=== PATIENT | female | born 1950 | race Caucasian/White ===

== ENCOUNTER → 2021-02-05 14:40 | Outpatient (CLI) | payer MEDICARE, SELFPAY ==
--- NOTE | ~2021-02-05 | XR_ITS ---
XR chest 2V 02/05/2021 15:07 Indication: Shortness of breath Procedure: 2 view chest Comparison: 05/04/2018 Findings: Heart size normal. No focal air space disease, pulmonary edema, pleural effusion or suspect ed pneumothorax. Calcified granuloma left lower lung zone. Multiple mild wedge compression deformitie s of the thoracic spine with accentuated kyphosis. Impression: 1: No acute cardiopulmonary disease. Reviewed, dictated and finalized at location B. Impression: 1: No acute cardiopulmonary disease.
== END ==
PROVIDERS: PCP Internal Medicine; Visit Provider Internal Medicine
DX: R06.02 Shortness of breath (principal)
CPT/HCPCS: 71046

== ENCOUNTER → 2021-03-31 17:46 | Outpatient (CLI) | payer MEDICARE, SELFPAY ==
--- NOTE | ~2021-03-31 | MM_ITS ---
EXAMINATION: MM screening [facility] BI w cristian HISTORY: Screening mammogram TECHNIQUE: Craniocaudal and mediolateral oblique 3-D tomosynthesis images were obtained and synthetic 2-D images were generated. CAD analysis was submitted and interpreted. COMPARISON: 11/26/2018, 12/13/2016, 11/22/2016, 11/20/2015 BREAST PARENCHYMAL COMPOSITION: The breasts are heterogeneously dense, which may obscure small masses . FINDINGS: There is no evidence of suspicious mass, calcification, or architectural distortion to sugg est malignancy in either breast. There has been no suspicious interval change. IMPRESSION: 1. No mammographic evidence of malignancy. 2. Recommend routine screening mammography in one year. BI-RADS Category 1: Negative Reviewed, dictated and finalized at location A.
--- NOTE | ~2021-03-31 | DEXA_ITS ---
Bone Density Report Name: Misty Oakley Age: 70 Sex: Female Ethnicity: White Date of : 1950 Indication: postmenopausal osteoporosis; height loss; prior fracture; Referring Provider: FAYE MARIE Study: Bone densitometry was performed. Exam Date: March 31, 2021 Accession number: [id number] Bone Density: Region BMD T-score Z-score Classification AP Spine (L1-L4) 0.780 -2.4 -0.2 Osteopenia Femoral Neck (Left) 0.757 -0.8 1.1 Normal Total Hip (Left) 0.836 -0.9 0.8 Normal Femoral Neck (Right) 0.717 -1.2 0.7 Osteopenia Total Hip (Right) 0.848 -0.8 0.9 Normal Total Hip Mean 0.842 -0.9 0.9 Normal World Health Organization criteria for BMD impression classify patients as: Normal (T-score at or above -1.0), Osteopenia (T-score between -1.0 and -2.5), or Osteoporosis (T-score at or below -2.5). 10-year Fracture Risk: FRAX not reported because: Prior hip or vertebral fracture Previous Exams: Region Exam Age BMD T-score BMD Change BMD Change Date g/cm2 vs Baseline vs Previous AP Spine(L1-L4) 03/31/2021 70 0.780 -2.4 0.101* 0.012 11/26/2018 68 0.768 -2.5 0.089* -0.004 11/22/2016 66 0.771 -2.5 0.093* 0.016 04/09/2014 63 0.756 -2.6 0.077* 0.018 10/18/2011 61 0.738 -2.8 0.059* 0.012 10/07/2009 59 0.726 -2.9 0.047* 0.041* 12/14/2007 57 0.685 -3.3 0.007 0.007 11/04/2005 55 0.679 -3.3 Total Hip(Left) 03/31/2021 70 0.836 -0.9 -0.016 -0.001 11/26/2018 68 0.836 -0.9 -0.015 0.005 11/22/2016 66 0.832 -0.9 -0.020 0.050* 04/09/2014 63 0.781 -1.3 -0.070* -0.055* 10/18/2011 61 0.836 -0.9 -0.015 0.043* 10/07/2009 59 0.793 -1.2 -0.058* 0.003 12/14/2007 57 0.790 -1.2 -0.061* -0.061* 11/04/2005 55 0.851 -0.7 Total Hip(Right) 03/31/2021 70 0.848 -0.8 0.002 -0.034* 11/26/2018 68 0.882 -0.5 0.037* -0.002 11/22/2016 66 0.885 -0.5 0.039* 0.020 04/09/2014 63 0.865 -0.6 0.019 0.055* 10/18/2011 61 0.810 -1.1 -0.035* 0.025 10/07/2009 59 0.785 -1.3 -0.060* 0.029* 12/14/2007 57 0.756 -1.5 -0.089* -0.089* 11/04/2005 55 0.846 -0.8 *Denotes significance at 95% confidence level, LSC for AP Spine = 0
== END ==
PROVIDERS: Visit Provider Obstetrics & Gynecology Gynecology
DX: Z12.31 Encounter for screening mammogram for malignant neoplasm of breast (principal); Z78.0 Asymptomatic menopausal state; M85.88 Other specified disorders of bone density and structure, other site; M85.851 Other specified disorders of bone density and structure, right thigh
CPT/HCPCS: 77063; 77067; 77080

== ENCOUNTER → 2021-04-27 14:50 | Outpatient (CLI) | payer MEDICARE, SELFPAY ==
--- NOTE | ~2021-04-27 | MR_ITS ---
EXAMINATION: MR knee RT wo con DATE: 04/27/2021 15:31 INDICATION: Severe pain at the lateral compartment of the right knee TECHNIQUE: Magnetic resonance imaging (MRI) of the right knee was performed without intravenous contr ast. Sequences included coronal PD-weighted FSE, coronal PD-weighted FS FSE, sagittal T2-weighted FS E, sagittal PD-weighted FS FSE and axial PD weighted fat saturated FSE. COMPARISON: None. FINDINGS: Medial compartment: Complex tear at the posterior horn of the medial meniscus with longitudinal horizontal tear plane at the medial meniscal body. Mild partial-thickness cartilage loss with minimal chondral surface irregul arity and without degenerative subchondral changes at the anterior weightbearing medial femoral condy le and anterior aspect of the medial tibial plateau. Lateral compartment: Increased signal along the inner third of the body of the lateral meniscus consistent with a small te ar of indeterminate morphology. Mild partial-thickness cartilage loss with smooth chondral surface al gagan the posterior weightbearing lateral femoral condyle. Patellofemoral compartment: Partial-thickness cartilage loss at the lateral patellar facet and patellar apical ridge which approa ches full-thickness with a few small foci of subarticular edema. Additional chondral ulceration with minimal underlying cortical irregularity and tiny focus of subarticular edema at the inferolateral as pect of the medial trochlea. Ligaments and tendons: Anterior and posterior cruciate ligaments are normal. Moderate thickening and mild increased signal o f the proximal medial collateral ligament without surrounding edema consistent with scarring related to chronic sprain. The fibular collateral ligament complex is normal. The extensor mechanism is kalen l. The visualized medial and lateral hamstring tendons as well as the iliotibial band are normal. Fluid: Small left knee joint effusion at the suprapatellar pouch. No loose osteochondral bodies identified. Osseous/other: Normal marrow signal. No fracture or pathologic marrow replacing process. Mild edema in the superfici al suprapatellar fat pad which can be seen with fat pad impingement syndrome. There is focal synoviti s at the anterolateral margin of the medial tibial plateau. Subcutaneous edema anterior to the patell ar tendon and anterior tibial tuberosity without discrete bursal fluid collection. IMPRESSION: 1. Medial and lateral meniscal tears, the former more extensive and complex, the latter involving a s mall region along the inner free edge of the lateral meniscal body and of indeterminate morphology. 2. 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 Line 3. Scarring the proximal medial collateral ligament consistent with chron ic sprain. 3. Edema at the superficial suprapatellar fat pad consistent with fat pad impingement syndrome. Reviewed, dictated and finalized at location A. IMPRESSION: 1. Medial and lateral meniscal tears, the former more extensive and complex, th e latter involving a small region along the inner free edge of the lateral meni scal body and of indeterminate morphology. 2. Patellofemoral predominant tricompartmental osteoarthritis with high-grade p atellar and medial trochlear chondromalacia. Line 3. Scarring the proximal medi al collateral ligament consistent with chronic sprain. 3. Edema at the superficial suprapatellar fat pad consistent with fat pad impin gement syndrome.
== END ==
PROVIDERS: PCP Internal Medicine; Visit Provider Orthopaedic Surgery
DX: S83.231A Complex tear of medial meniscus, current injury, right knee, initial encounter (principal); S83.271A Complex tear of lateral meniscus, current injury, right knee, initial encounter; M17.11 Unilateral primary osteoarthritis, right knee; M79.89 Other specified soft tissue disorders
CPT/HCPCS: 73721

== ENCOUNTER → 2023-04-03 13:11 | Outpatient (CLI) | payer MEDICARE, SELFPAY ==
--- NOTE | ~2023-04-03 | MM_ITS ---
EXAMINATION: MM screening [facility] BI w cristian HISTORY: Screening mammogram TECHNIQUE: Craniocaudal and mediolateral oblique 3-D tomosynthesis images were obtained and synthetic 2-D images were generated. CAD analysis was submitted and interpreted. COMPARISON: 03/31/2021, 11/26/2018 bilateral screening mammogram examinations BREAST PARENCHYMAL COMPOSITION: The breasts are heterogeneously dense, which may obscure small masses . FINDINGS: A pacemaker device partially obscures the left axillary tail and axilla. There is no eviden ce of suspicious mass, calcification, or architectural distortion to suggest malignancy in either roland ast. There has been no suspicious interval change. IMPRESSION: 1. No mammographic evidence of malignancy. 2. Recommend routine screening mammography in one year. BI-RADS Category 1: Negative Reviewed, dictated and finalized at location A.
--- NOTE | ~2023-04-03 | DEXA_ITS ---
Bone Density Report Name: LEON NOE Age: 72 Sex: Female Ethnicity: White Date of : 1950 Indication: osteopenia; height loss; prior fracture; postmenopausal Referring Provider: FAYE MARIE Study: Bone densitometry was performed. Exam Date: April 03, 2023 Accession number: [id number] Bone Density: Region BMD T-score Z-score Classification AP Spine (L1-L4) 0.773 -2.5 -0.1 Osteoporosis Femoral Neck (Left) 0.794 -0.5 1.6 Normal Total Hip (Left) 0.784 -1.3 0.5 Osteopenia Femoral Neck (Right) 0.767 -0.7 1.3 Normal Total Hip (Right) 0.838 -0.8 0.9 Normal Total Hip Mean 0.811 -1.1 0.7 Osteopenia World Health Organization criteria for BMD impression classify patients as: Normal (T-score at or above -1.0), Osteopenia (T-score between -1.0 and -2.5), or Osteoporosis (T-score at or below -2.5). 10-year Fracture Risk: FRAX not reported because: Some T-score for Spine Total or Hip Total or Femoral Neck at or below -2.5 Prior hip or vertebral fracture Previous Exams: Region Exam Age BMD T-score BMD Change BMD Change Date g/cm2 vs Baseline vs Previous AP Spine(L1-L4) 04/03/2023 72 0.773 -2.5 0.094* -0.007 03/31/2021 70 0.780 -2.4 0.101* 0.012 11/26/2018 68 0.768 -2.5 0.089* -0.004 11/22/2016 66 0.771 -2.5 0.093* 0.016 04/09/2014 63 0.756 -2.6 0.077* 0.018 10/18/2011 61 0.738 -2.8 0.059* 0.012 10/07/2009 59 0.726 -2.9 0.047* 0.041* 12/14/2007 57 0.685 -3.3 0.007 0.007 11/04/2005 55 0.679 -3.3 Total Hip(Left) 04/03/2023 72 0.784 -1.3 -0.067* -0.051* 03/31/2021 70 0.836 -0.9 -0.016 -0.001 11/26/2018 68 0.836 -0.9 -0.015 0.005 11/22/2016 66 0.832 -0.9 -0.020 0.050* 04/09/2014 63 0.781 -1.3 -0.070* -0.055* 10/18/2011 61 0.836 -0.9 -0.015 0.043* 10/07/2009 59 0.793 -1.2 -0.058* 0.003 12/14/2007 57 0.790 -1.2 -0.061* -0.061* 11/04/2005 55 0.851 -0.7 Total Hip(Right) 04/03/2023 72 0.838 -0.8 -0.007 -0.010 03/31/2021 70 0.848 -0.8 0.002 -0.034* 11/26/2018 68 0.882 -0.5 0.037* -0.002 11/22/2016 66 0.885 -0.5 0.039* 0.020 04/09/2014 63 0.865 -0.6 0.019 0.055* 10/18/2011 61 0.810 -1.1 -0.035* 0.025 10/07/2009 59 0.785 -1.3 -0.060* 0
== END ==
PROVIDERS: PCP Obstetrics & Gynecology Gynecology; Visit Provider Obstetrics & Gynecology Gynecology
DX: Z12.31 Encounter for screening mammogram for malignant neoplasm of breast (principal); Z78.0 Asymptomatic menopausal state; M81.0 Age-related osteoporosis without current pathological fracture; M85.852 Other specified disorders of bone density and structure, left thigh
CPT/HCPCS: 77063; 77067; 77080

== ENCOUNTER 2024-07-23 13:53 | Outpatient (CLI) | payer MEDICARE, SELFPAY ==
--- NOTE | ~2024-07-23 | MM_ITS ---
EXAMINATION: MM screening [facility] BI w cristian HISTORY: Screening TECHNIQUE: Craniocaudal and mediolateral oblique 3-D tomosynthesis images were obtained and synthetic 2-D images were generated. CAD analysis was submitted and interpreted. COMPARISON: Comparison to multiple prior studies sequentially, with oldest reviewed study dated 03/2016. BREAST PARENCHYMAL COMPOSITION: Not dense: There are scattered areas of fibroglandular density. FINDINGS: There is no evidence of suspicious mass, calcification, or architectural distortion to sugg est malignancy in either breast. There has been no suspicious interval change. IMPRESSION: 1. No mammographic evidence of malignancy. 2. Recommend routine screening mammography in one year. BI-RADS Category 1: Negative Reviewed, dictated and finalized at location B. N CLEANER
== END 2024-07-23 13:54 | disposition home or self-care (01) ==
LOC: MICIMG 13:55
PROVIDERS: PCP Family Medicine; Visit Provider Obstetrics & Gynecology Gynecology
DX: Z12.31 Encounter for screening mammogram for malignant neoplasm of breast (principal)
CPT/HCPCS: 77063; 77067

== ENCOUNTER 2025-04-04 14:50 | Outpatient (CLI) | payer MEDICARE, SELFPAY ==
--- NOTE | ~2025-04-04 | DEXA_ITS ---
Bone Density Report Name: LEON NOE Age: 74 Sex: Female Ethnicity: White Date of : 1950 Indication: postmenopausal osteoporosis; height loss; Referring Provider: FAYE MARIE Study: Bone densitometry was performed. Exam Date: April 04, 2025 Accession number: [id number] Bone Density: Region BMD T-score Z-score Classification AP Spine(L1-L4) 0.761 -2.6 -0.1 Osteoporosis Femoral Neck (Left) 0.739 -1.0 1.2 Normal Total Hip (Left) 0.770 -1.4 0.5 Osteopenia Femoral Neck (Right) 0.702 -1.3 0.8 Osteopenia Total Hip (Right) 0.803 -1.1 0.7 Osteopenia Total Hip Mean 0.786 -1.3 0.6 Osteopenia World Health Organization criteria for BMD impression classify patients as: Normal (T-score at or above -1.0), Osteopenia (T-score between -1.0 and -2.5), or Osteoporosis (T-score at or below -2.5). 10-year Fracture Risk: FRAX not reported because: Some T-score for Spine Total or Hip Total or Femoral Neck at or below -2.5 Previous Exams: -- Region Exam Age BMD T-score BMD Change BMD Change Date g/cm2 vs Baseline vs Previous -- AP Spine (L1-L4) 04/04/2025 74 0.761 -2.6 12.1%* -1.5% 04/03/2023 72 0.773 -2.5 13.9%* -0.9% 03/31/2021 70 0.780 -2.4 14.9%* 1.6% 11/26/2018 68 0.768 -2.5 13.1%* -0.5% 11/22/2016 66 0.771 -2.5 13.6%* 2.1% 04/09/2014 63 0.756 -2.6 11.3%* 2.4% 10/18/2011 61 0.738 -2.8 8.7%* 1.7% 10/07/2009 59 0.726 -2.9 7.0%* 5.9%* 12/14/2007 57 0.685 -3.3 1.0% 1.0% 11/04/2005 55 0.679 -3.3 Total Hip(Left) 04/04/2025 74 0.770 -1.4 -9.6%* -1.8% 04/03/2023 72 0.784 -1.3 -7.9%* -6.2%* 03/31/2021 70 0.836 -0.9 -1.8% -0.1% 11/26/2018 68 0.836 -0.9 -1.7% 0.6% 11/22/2016 66 0.832 -0.9 -2.3% 6.5%* 04/09/2014 63 0.781 -1.3 -8.2%* -6.6%* 10/18/2011 61 0.836 -0.9 -1.8% 5.4%* 10/07/2009 59 0.793 -1.2 -6.8%* 0.4% 12/14/2007 57 0.790 -1.2 -7.2%* -7.2%* 11/04/2005 55 0.851 -0.7 Total Hip(Right) 04/04/2025 74 0.803 -1.1 -5.1%* -4.2%* 04/03/2023 72 0.838 -0.8 -0.9% -1.1% 03/31/2021 70 0.848 -0.8 0.3% -3.9%* 11/26/2018 68 0.882 -0.5 4.4%* -0.3% 11/22/2016 66 0.885 -0.5 4.6%* 2.3% 04/09/2014 63 0.865 -0.6 2.3% 6.7%* 10/18/2011 61 0.810 -1.1 -4.2%* 3.2% 10/07/2009 59 0.785 -1.3 -7.1%* 3.8%* 12/14/2007 57 0.756 -1.5 -10.5%* -10.5%* 11/04/2005 55 0.846 -0.8 -- *Denotes significance at 95% confidence level, LSC for AP Spine = 0.022 g/cm2, LSC for Total Hip = 0.027 g/cm2 Clinical Information Provided by Patient: Has used the following medications: Forteo (i.e. parathyroid hormone), Fosamax (i.e. alendronate), HRT (i.e. estrogen/hormone therapy), Calcium Patient maximum height was 62 Menopause Age: 53 No regular weight bearing exercise Does not regularly consume dairy products Drinks caffeinated beverages Onset of menses at age 14 Number of children 2 Impression: The patient has osteoporosis, based on the Total Spine T-score. The BMD for the Total Hip(Right) decreased, changing by -4.2% since the last DXA exam. Discussion: INCREASED RISK OF FRACTURE. BONE DENSITY IS UNDESIRABLY LOW AT ONE OR MORE SKELETAL SITES, CONSISTENT WITH POSTMENOPAUSAL OSTEOPOROSIS. This patient's lowest T-score meets the World Health Organization's (WHO) criteria for osteoporosis at one or more sites (T-score -2.5 or below). In untreated patients, the risk of osteoporotic fracture increases approximately two-fold for each 1.0 SD decrease in T-score. Low bone density is not the only risk factor for fracture; also consider factors such as patient's age, frailty or poor health, risk of falling, risk of injury, previous osteoporotic fracture, family history of osteoporosis, cigarette smoking, low body weight, etc. Not everyone with low bone mineral density has osteoporosis; osteomalacia and other metabolic bone disorders should also be considered. Patients who have osteoporosis should be evaluated for specific diseases and conditions (secondary causes) that may cause or contribute to bone loss. The [place] [employer] Endocrinologists (AACE) and National Osteoporosis Foundation (NOF) recommend pharmacologic intervention for all postmenopausal women whose T-score is in this range. The patient should follow a healthful lifestyle (good nutrition with adequate calcium and vitamin D, and appropriate weight-bearing exercise). Follow-Up: Consider a repeat BMD and Vertebral Fracture Assessment (VFA) exam in 2 years or sooner if medically necessary, to reassess this patient's status. Reported by: MILLIE on 04/04/2025 3:18:00 PM. Reviewed, dictated and finalized at location A.
== END 2025-04-04 14:51 | disposition home or self-care (01) ==
LOC: MICIMG 14:52
PROVIDERS: PCP Family Medicine; Visit Provider Obstetrics & Gynecology Gynecology
DX: Z78.0 Asymptomatic menopausal state (principal); M81.0 Age-related osteoporosis without current pathological fracture; M85.852 Other specified disorders of bone density and structure, left thigh; M85.851 Other specified disorders of bone density and structure, right thigh
CPT/HCPCS: 77080